=== PATIENT | female | born 1955 | race Caucasian/White ===

== ENCOUNTER → 2023-06-24 16:27 | Outpatient (CLI) | payer MEDICARE, SELFPAY ==
--- NOTE | 2023-06-24 16:30 | DI.MRI.S_ITS ---
PROCEDURE: MR PELVIS WO CON INDICATIONS: Sacrococcygeal disorders TECHNIQUE: Noncontrast axial and oblique coronal T1 spin echo and STIR through the sacroiliac joints. COMPARISON: [facility], CR, XR HIP 2 VIEWS BILATERAL, 04/16/2023, 12:42. FINDINGS: Image quality: Excellent. Bones: The sacroiliac joints appear intact. No adjacent bone marrow edema to suggest active sacroiliitis. No bony ankylosis. No suspicious marrow space occupying lesions. Mild focal edema is seen in the lower sacrum (image 28 of series 6). Multilevel facet hypertrophy in the lower lumbar spine with adjacent synovial cysts. Soft tissues: No presacral masses. Rectum appears normal in caliber and wall thickness. No pathologic free pelvic fluid. IMPRESSION: 1. Mild focal edema is seen in the lower sacrum, which is nonspecific but could represent a mild contusion if there has been prior trauma. No displaced fracture is seen. 2. Sacroiliac joints are intact. 3. Facet hypertrophy is seen in the lower lumbar spine. Approved by: Abdullahi Valdes M.D. on 06/25/2023 at 9:29
== END ==
LOC: MRI 16:29
PROVIDERS: Referring Provider Physical Medicine & Rehabilitation Pain Medicine; Visit Provider Physical Medicine & Rehabilitation Pain Medicine
DX: M53.3 Sacrococcygeal disorders, not elsewhere classified (principal); M47.816 Spondylosis without myelopathy or radiculopathy, lumbar region; M71.38 Other bursal cyst, other site
CPT/HCPCS: 72195